=== PATIENT | male | born 1965 | race Caucasian/White ===

== ENCOUNTER 2018-03-22 11:17 | Day surgery (SDC) | payer OTHER ==
[2018-03-22] MEDS ORDERED: NS 500 ML IV ONE (11:31)
[2018-03-22] MEDS ORDERED: ALBUTEROL 3 ML DEYVIAL IH ONE (11:31)
[2018-03-22] MEDS ORDERED: LIDOCAINE 1% 2 ML INJ ID PRN (11:31)
[2018-03-22] MEDS ORDERED: ALBUTEROL 3 ML DEYVIAL ONE (11:54)
[2018-03-22] MEDS ORDERED: LIDOCAINE 1% 300 MG/30 ML SDV ONE (11:54)
[2018-03-22] MEDS ORDERED: EPINEPHrine 1 MG/ML INJ ONE (11:54)
[2018-03-22] MEDS ORDERED: LIDOCAINE 2% JELLY 6 ML TOPICAL SYR TP ONE (12:15)
[2018-03-22] MEDS ORDERED: LIDOCAINE 2% JELLY 6 ML TOPICAL SYR ONE (12:32)
[2018-03-22] MEDS ORDERED: fentaNYL 100 MCG/2 ML INJ ONE (13:00)
[2018-03-22] MEDS ORDERED: MIDAZOLAM 2 MG/2 ML VIAL ONE ×2 (13:00→13:18)
--- NOTE | 2018-03-22 13:05 | PDPROPOC ---
Sedation Plan of Care Sedation Plan of Care: vital signs stable, mental status noted, patient educated of risks, benefits, alternatives, patient can tolerate sedation ASA Classification: ASA 1 Planned drugs: fentanyl, midazolam Mallampati Score: Class 1 Mallampati Reference Image: Patient passed 3-3-2 rule?: Yes
[2018-03-22] MEDS ORDERED: fentaNYL 100 MCG/2 ML INJ IVP ONE (13:30)
[2018-03-22] MEDS ORDERED: MIDAZOLAM 2 MG/2 ML VIAL IVP ONE (13:30)
--- NOTE | 2018-03-22 13:37 | BVPULMO ---
[facility] Surgical Services- Pulmonology Patient Name: Jordin Chandler Procedure Date: 03/22/2018 11:58 AM Patient Type: Outpatient Attending MD/ER Physician: Andrew Wilkins MD Procedure: Bronchoscopy Indications: Chronic cough Providers: Andrew Wilkins MD Medicines: Lidocaine 1% applied to cords 2 mL, Lidocaine applied to nares and subglottic s pace, Midazolam 7 mg IV, Fentanyl 175 mcg IV Complications: No immediate complications Procedure: After informed consent, a time out was performed. N95 masks were worn, and the procedure was done in a negative pressure room. The patient was given appropria te topical anesthesia and intravenous sedation. The fiberopic bronchoscope was pas sed via a bite block orally into the larynx and subsequently into the lower trachea bronchial tree. Throughout the procedure, the patient's blood pressure, pulse, and oxygen saturations were monitored continuously. The Bronchoscope (Video) was introduced through the mouth and advanced to the miguel. The procedure was unus ually difficult due to the patient's inability to tolerate conscious sedation and ineffective sedation. Successful completion of the procedure was aided by recei ving assistance from additional staff. Findings: The oropharynx appears normal. The larynx appears normal. The vocal cords appea r normal. The subglottic space is normal. The trachea is of normal caliber. The c [place] is sharp. Bronchoscopy then aborted secondary to patient intolerance. Post Op Diagnosis: - Chronic cough - The airway examination was normal. - No specimens collected. - The airway examination was normal. Estimated Blood Loss: Estimated blood loss: none. Recommendation: - Follow up with bronchoscopist in 1 month. Attending Participation: I personally performed the entire procedure. Andrew Wilkins MD Andrew Wilkins MD 03/22/2018 1:37:09 PM This report has been signed electronicallyThomas MD Franky Number of Addenda: 0 Note Initiated On: 03/22/2018 11:58 AM [email or web address]
--- NOTE | 2018-03-22 13:39 | POSTOPPROG ---
Post Op Note Date of Operation: 03/22/18 Surgeon: Andrew Wilkins Anesthesia: IV Sedation Pre-op Diagnosis: cough Post-op Diagnosis: same Indication: cough Procedure: bronchoscopy Findings: normal glottic and subglottic area, normal appearing trachea Inf/Abcess present in the surg proc area at time of surgery?: No Complications: Intolerance to sedation.
[2018-03-22 14:53] VITALS: BP 105/63
== END 2018-03-22 14:56 | disposition home or self-care (01) ==
LOC: FSGY 11:17
PROVIDERS: ATTEND Internal Medicine Pulmonary Disease
PROC: 0BJ08ZZ Inspection of Tracheobronchial Tree, Via Natural or Artificial Opening Endoscopic (ICD-10-PCS; principal; 2018-03-22 13:00)
DX: R05 Cough (principal); R07.0 Pain in throat; T88.52XA Failed moderate sedation during procedure, initial encounter; K21.9 Gastro-esophageal reflux disease without esophagitis; K22.70 Barrett's esophagus without dysplasia
CPT/HCPCS: J0171; J2250; J3010; J7613